=== PATIENT | female | born 1955 | race Caucasian/White ===

== ENCOUNTER 2020-09-04 10:47 | Inpatient (IN) | payer OTHER ==
[~2020-09-04] VITALS: Ht 157.5 cm; Wt 60.3 kg
[2020-09-04] VITALS (7 sets, daily range): BP systolic 107–170; BP diastolic 67–104
[2020-09-04 11:30] LABS: BASO # 0.1 10*3/uL (0.0-0.1); EOS # 0.2 10*3/uL (0.0-0.4); EOS % 1.9 % (1.0-4.0); HEMATOCRIT 45.8 % (37.0-47.0); LYMPH # 4.2 10*3/uL (1.3-4.4); LYMPH % 40.4 % (27.0-41.0); MEAN CELL VOLUME 94.4 fl (81.0-99.0); MEAN CORPUSCULAR HGB 31.3 pg (27.0-31.0); MEAN CORPUSCULAR HGB CONC 33.2 g/dl (33.0-37.0); MEAN PLATELET VOLUME 8.6 fl (9.6-12.3); MONO % 9.2 % (3.0-9.0); NEUT # 4.9 10*3/uL (2.3-7.9); NEUT % 47.1 % (47.0-73.0); PLATELET COUNT AUTOMATED 598 10*3/uL (130-400); RED BLOOD COUNT 4.85 10*6/uL (4.10-5.10); WHITE BLOOD COUNT 10.5 10*3/uL (4.8-10.8)
[2020-09-04 11:47] LABS: BUN 6 mg/dl (7-24); CHLORIDE 105 mmol/L (98-107); CREATININE 0.61 mg/dL (0.55-1.02); POTASSIUM 4.2 mmol/L (3.5-5.1); SODIUM 136 mmol/L (136-145)
[2020-09-04 11:49] LABS: TROPONIN I 0.365 ng/ml (<0.045)
[2020-09-04 12:19] LABS: ACT PARTIAL THROMBO TIME 29.8 SECONDS (20.0-32.1)
[2020-09-04] MEDS ORDERED: ZOLPIDEM10 MG PO (14:11)
[2020-09-04] MEDS ORDERED: FLUOXETINE HCL10 MG PO (14:13)
[2020-09-04] MEDS ORDERED: BUSPAR5 MG PO (14:13)
[2020-09-04] MEDS ORDERED: HYDROCODONE-AC1 EAC1 PO (14:14)
[2020-09-04] MEDS ORDERED: [UNRECOGNIZED DRUG - OTHER] PO (14:17)
[2020-09-04] MEDS ORDERED: 24 HOUR ALLER15.8 ML NAS (14:19)
[2020-09-04] MEDS ORDERED: VITAMIN D325 MC1 PO (14:21)
[2020-09-04] MEDS ORDERED: ZYRTEC10 M2 PO (14:22)
[2020-09-04] MEDS ORDERED: MAGNESIUM400 M1 PO (14:23)
[2020-09-04] MEDS ORDERED: SINGULAIR10 M1 PO (14:23)
[2020-09-05] VITALS: BP 102/55
[2020-09-05 06:17] LABS: BASO # 0.1 10*3/uL (0.0-0.1); BASO % 0.8 % (0.0-1.0); EOS # 0.1 10*3/uL (0.0-0.4); EOS % 0.9 % (1.0-4.0); HEMATOCRIT 40.6 % (37.0-47.0); LYMPH # 3.9 10*3/uL (1.3-4.4); LYMPH % 28.2 % (27.0-41.0); MEAN CELL VOLUME 96.4 fl (81.0-99.0); MEAN CORPUSCULAR HGB 31.1 pg (27.0-31.0); MEAN CORPUSCULAR HGB CONC 32.3 g/dl (33.0-37.0); MONO % 7.4 % (3.0-9.0); NEUT # 8.5 10*3/uL (2.3-7.9); NEUT % 62.3 % (47.0-73.0); PLATELET COUNT AUTOMATED 540 10*3/uL (130-400); RED BLOOD COUNT 4.21 10*6/uL (4.10-5.10); RED CELL DISTRI WIDTH 13.3 % (0-14.5); WHITE BLOOD COUNT 13.7 10*3/uL (4.8-10.8)
[2020-09-05 06:26] LABS: ALBUMIN 3.5 gm/dl (3.1-4.5); BUN 11 mg/dl (7-24); CHLORIDE 105 mmol/L (98-107); POTASSIUM 4.3 mmol/L (3.5-5.1); SODIUM 134 mmol/L (136-145)
[2020-09-05 06:33] LABS: ALKALINE PHOSPHATASE 96 U/L (45-117); CHOLESTEROL 219 mg/dL (<200); CREATININE 0.61 mg/dL (0.55-1.02); FREE T4 0.86 ng/dl (0.76-1.46); LDL CHOLESTEROL 154 mg/dL (9-159); SGOT/AST 49 IU/L (3-35); SGPT/ALT 35 U/L (12-78); THYROID STIM HORMONE (HS) 0.832 uIU/ml (0.358-4.75); TOTAL PROTEIN 6.8 gm/dL (6.4-8.2); TRIGLYCERIDES 137 mg/dl (<150)
[2020-09-05 08:00] VITALS: BP 101/80
[2020-09-05 12:00] VITALS: BP 109/60
[2020-09-05 16:00] VITALS: BP 118/60
[2020-09-05 20:00] VITALS: BP 126/67
[2020-09-06] VITALS: BP 120/55
[2020-09-06 05:56] LABS: BASO # 0.1 10*3/uL (0.0-0.1); EOS # 0.1 10*3/uL (0.0-0.4); EOS % 1.1 % (1.0-4.0); HEMATOCRIT 40.1 % (37.0-47.0); LYMPH # 3.9 10*3/uL (1.3-4.4); LYMPH % 38.6 % (27.0-41.0); MEAN CELL VOLUME 95.5 fl (81.0-99.0); MEAN CORPUSCULAR HGB 31.4 pg (27.0-31.0); MEAN CORPUSCULAR HGB CONC 32.9 g/dl (33.0-37.0); MEAN PLATELET VOLUME 8.6 fl (9.6-12.3); MONO % 9.8 % (3.0-9.0); NEUT % 49.2 % (47.0-73.0); PLATELET COUNT AUTOMATED 449 10*3/uL (130-400); RED CELL DISTRI WIDTH 13.1 % (0-14.5); WHITE BLOOD COUNT 10.2 10*3/uL (4.8-10.8)
[2020-09-06 06:09] LABS: BUN 10 mg/dl (7-24); CHLORIDE 105 mmol/L (98-107); CREATININE 0.56 mg/dL (0.55-1.02); POTASSIUM 4.3 mmol/L (3.5-5.1); SODIUM 136 mmol/L (136-145)
[2020-09-06 08:00] VITALS: BP 132/74
[2020-09-06 12:00] VITALS: BP 139/82
[2020-09-06] MEDS ORDERED: ATORVASTATIN CA40 M1 PO (12:22)
[2020-09-06] MEDS ORDERED: ASPIRIN ADULT L81 M2 PO (12:22)
[2020-09-06 16:00] VITALS: BP 149/82
[2020-09-06 20:00] VITALS: BP 147/74
== END 2020-09-06 21:28 | disposition short-term general hospital (02) | DRG 280 ==
LOC: ED 10:47 → EDHOLD 12:22 → 5E 12:22
PROVIDERS: Emergency Medicine; Internal Medicine; ADMIT Internal Medicine; ATTEND Internal Medicine
DX: I21.4 Non-ST elevation (NSTEMI) myocardial infarction (principal); J18.9 Pneumonia, unspecified organism; E87.1 Hypo-osmolality and hyponatremia; J45.909 Unspecified asthma, uncomplicated; F41.9 Anxiety disorder, unspecified; R73.9 Hyperglycemia, unspecified; D47.3 Essential (hemorrhagic) thrombocythemia; E83.41 Hypermagnesemia; E83.39 Other disorders of phosphorus metabolism; Z79.1 Long term (current) use of non-steroidal anti-inflammatories (NSAID); Z79.899 Other long term (current) drug therapy; Z82.0 Family history of epilepsy and other diseases of the nervous system; Z82.49 Family history of ischemic heart disease and other diseases of the circulatory system; Z82.3 Family history of stroke; Z83.3 Family history of diabetes mellitus